=== PATIENT | female | born 1985 | race African-American/Black ===

== ENCOUNTER → 2020-07-30 | Outpatient (CLI) | payer OTHER ==
[2020-07-30 14:19] LABS: Basophils % (A) 0 %; Eosinophils # (A) 0.1 k/uL (0-0.7); Eosinophils % (A) 2 %; HCT 36.2 % (34.0-46.0); HGB 11.4 gm/dL (11.4-16.0); Hypochromasia Moderate; Lymphocytes # (A) 1.9 k/uL (1.0-4.8); Lymphocytes % (A) 40 %; MCH 24.4 pg (25.0-35.0); MCHC 31.6 g/dL (31.0-37.0); MCV 77.2 fL (80.0-100.0); Monocytes # (A) 0.3 k/uL (0-1.0); Monocytes % (A) 7 %; Neutrophils # (A) 2.3 k/uL (1.3-7.7); Neutrophils % (A) 49 %; Platelet Count 274 k/uL (150-450); RBC 4.69 m/uL (3.80-5.40); RDW 14.6 % (11.5-15.5); WBC 4.7 k/uL (3.8-10.6)
[2020-07-30 21:44] LABS: African American GFR (CKD) 110.7 (60.0-200.0); Albumin 4.4 g/dL (3.80-4.90); Albumin/Globulin Ratio 2.1 (1.60-3.17); BUN/Creat Ratio 13.75 Ratio (12.00-20.00); Calcium 9.2 mg/dL (8.7-10.3); Chol/HDL Ratio 4.03; Globulin 2.1 g/dL (1.6-3.3); LDL Cholesterol,Calculated 99.6 mg/dL (0.0-131.0); Non-African American GFR(CKD) 95.5 (60.0-200.0); Potassium 4.4 mmol/L (3.5-5.5); Total Bilirubin 0.6 mg/dL (0.3-1.2); Total Protein 6.5 g/dL (6.2-8.2); VLDL Calculation 15.4 mg/dL (5.00-40.00)
[2020-07-30 22:21] LABS: Folate, Serum 16.6 ng/mL; T4, Free (Free Thyroxine) 0.9 ng/dL (0.80-1.80)
== END | disposition home or self-care (01) ==
LOC: LABWHC1 13:13
PROVIDERS: ATTEND Nurse Practitioner Family
DX: Z00.00 Encounter for general adult medical examination without abnormal findings (principal); R53.83 Other fatigue
CPT/HCPCS: 36415; 80053; 80061; 82306; 82607; 82746; 84207; 84425; 84439; 84443; 85025

== ENCOUNTER → 2022-02-15 | Outpatient (CLI) | payer OTHER ==
[2022-02-15 19:10] LABS: ALT 11 U/L (8-44); AST 16 U/L (13-35); African American GFR (CKD) 94.7 (60.0-200.0); Albumin 4.2 g/dL (3.8-4.9); Alkaline Phosphatase 60 U/L (41-126); BUN/Creat Ratio 9.67 Ratio (12.00-20.00); Blood Urea Nitrogen 8.7 mg/dL (9.0-27.0); Calcium 9.3 mg/dL (8.7-10.3); Chloride 104 mmol/L (96-109); Chol/HDL Ratio 4.17 Ratio; Glucose 97 mg/dL (70-110); LDL Cholesterol,Calculated 114.8 mg/dL (0.0-131.0); Non-African American GFR(CKD) 81.7 (60.0-200.0); Sodium 140 mmol/L (135-145); Total Protein 7.2 g/dL (6.2-8.2); VLDL Calculation 16.02 mg/dL (5.00-40.00)
[2022-02-15 19:12] LABS: Basophils # (A) 0.03 X 10*3/uL (0.00-0.10); Basophils % (A) 0.4 %; Eosinophils # (A) 0.17 X 10*3/uL (0.04-0.35); Eosinophils % (A) 2.2 %; HCT 38.9 % (37.2-46.3); HGB 12.7 g/dL (12.0-15.0); Immature Grans, Automated 0.3 %; Lymphocytes # (A) 2.01 X 10*3/uL (0.90-5.00); MCH 28.2 pg (27.0-32.0); MCHC 32.6 g/dL (32.0-37.0); MCV 86.3 fL (80.0-97.0); Mean Platelet Volume 10.5 fL (9.5-12.2); Monocytes # (A) 0.54 X 10*3/uL (0.20-1.00); NRBC Per 100 WBC 0 /100 WBCS (0.0-0.0); Neutrophils # (A) 4.97 X 10*3/uL (1.80-7.70); Neutrophils % (A) 64.1 %; Platelet Count 308 X 10*3/uL (140-440); RBC 4.51 X 10*6/uL (4.10-5.20); RDW 13.5 % (11.5-14.5); WBC 7.74 X 10*3/uL (4.50-10.00)
== END | disposition home or self-care (01) ==
LOC: LABWHC1 11:35
PROVIDERS: ATTEND Family Medicine
DX: E66.01 Morbid (severe) obesity due to excess calories (principal)
CPT/HCPCS: 36415; 80053; 80061; 82306; 83036; 84439; 84443; 85025

== ENCOUNTER → 2023-04-11 | Outpatient (CLI) | payer OTHER ==
--- NOTE | 2023-04-11 16:17 | XR ---
EXAMINATION TYPE: XR lumbar spine 3V DATE OF EXAM: 04/11/2023 Comparison: None Clinical History: 37-year-old female M54.42 LUMBAGO WITH SCIATICA, LEFT SIDE Findings: Cholecystectomy clips. 5 lumbar type vertebral bodies. Facet arthropathy lower lumbar spine. Vertebra l body heights are preserved and alignment is maintained. Mild degenerative change at the SI joints. Impression: Mild degenerative change of the SI joints. Some facet arthropathy in the lower lumbar spine. No verte bral compression collapse or malalignment.
== END | disposition home or self-care (01) ==
LOC: RADXRMAIN 15:32
PROVIDERS: ATTEND Family Medicine
DX: M54.42 Lumbago with sciatica, left side (principal); M47.26 Other spondylosis with radiculopathy, lumbar region; M46.1 Sacroiliitis, not elsewhere classified
CPT/HCPCS: 72100

== ENCOUNTER → 2023-09-06 | Outpatient (CLI) | payer OTHER ==
[2023-09-06 16:08] LABS: % Iron Saturation 10.02 (12.00-45.00); ALT 14 U/L (8-44); AST 16 U/L (13-35); Albumin 3.9 g/dL (3.8-4.9); Alkaline Phosphatase 75 U/L (41-126); Blood Urea Nitrogen 7.2 mg/dL (9.0-27.0); Calcium 9.3 mg/dL (8.7-10.3); Carbon Dioxide 25.6 mmol/L (21.6-31.8); Chloride 105 mmol/L (96-109); Chol/HDL Ratio 3.79 Ratio; Ferritin 34.1 ng/mL (10.0-291.0); Globulin 2.6 g/dL (1.6-3.3); Glucose 126 mg/dL (70-110); Iron 41 UG/DL (50-170); LDL Cholesterol,Calculated 91.6 mg/dL (0.0-131.0); Potassium 4.1 mmol/L (3.5-5.5); Sodium 141 mmol/L (135-145); Total Bilirubin 0.4 mg/dL (0.3-1.2); Total Iron Binding Capacity 409 UG/DL (228-460); Total Protein 6.5 g/dL (6.2-8.2); VLDL Calculation 17.38 mg/dL (5.00-40.00)
[2023-09-06 17:02] LABS: Basophils # (A) 0.02 X 10*3/uL (0.00-0.10); Basophils % (A) 0.2 %; Eosinophils # (A) 0.36 X 10*3/uL (0.04-0.35); Eosinophils % (A) 3.9 %; HCT 38.2 % (37.2-46.3); HGB 11.5 g/dL (12.0-15.0); Lymphocytes # (A) 1.88 X 10*3/uL (0.90-5.00); Lymphocytes % (A) 20.2 %; MCH 24.8 pg (27.0-32.0); MCHC 30.1 g/dL (32.0-37.0); MCV 82.5 FL (80.0-97.0); Mean Platelet Volume 10.7 FL (9.5-12.2); Monocytes # (A) 0.65 X 10*3/uL (0.20-1.00); NRBC Per 100 WBC 0 X 10*3/uL (0.00-0.01); Neutrophils # (A) 6.36 X 10*3/uL (1.80-7.70); Neutrophils % (A) 68.4 %; Platelet Count 332 X 10*3/uL (140-440); RBC 4.63 X 10*6/uL (4.10-5.20); RDW 14.2 % (11.5-14.5)
== END | disposition home or self-care (01) ==
LOC: LABWHC1 09:49
PROVIDERS: ATTEND Family Medicine
DX: D50.9 Iron deficiency anemia, unspecified (principal); E78.5 Hyperlipidemia, unspecified
CPT/HCPCS: 36415; 80053; 80061; 82652; 82728; 83036; 83540; 83550; 84443; 85025